=== PATIENT | male | born 1945 | race Caucasian/White ===

== ENCOUNTER 2021-08-16 13:31 | Emergency (ER) | payer OTHER, MEDICARE ==
[2021-08-16 15:02] LABS: BASOPHIL 0.7 % (0-2); EOSINOPHIL 0.9 % (0-7); HCT 46.6 % (42.0-52.0); HGB 15.4 g/dl (13.2-18.0); LYMPHOCYTE 13.4 % (15-48); MCH 29.1 pg (25.0-31.0); MCV 88.1 fL (78.0-100.0); MONOCYTE 7.1 % (0-12); MPV 9.9 fL (6.0-9.5); NEUTROPHIL 77.5 % (41-80); NRBC 0; PLT 213 K/uL (150-400); RBC 5.29 M/uL (4.70-6.00); WBC 6.9 K/uL (4.0-10.5)
[2021-08-16 15:08] LABS: BILIRUBIN NEGATIVE (NEGATIVE); BLOOD 3+ Ery/uL (NEGATIVE); CLARITY CLEAR (CLEAR); COLOR YELLOW (YELLOW); GLUCOSE (U) NORMAL (NORMAL); LEUKOCYTES NEGATIVE Leu/uL (NEGATIVE); NITRITE NEGATIVE (NEGATIVE); PROTEIN 2+ mg/dL (NEGATIVE); SPECIFIC GRAVITY >=1.030 (1.001-1.030); UROBILINOGEN 0.2 mg/dL (0.2-1.0); pH 5.5 (5.0-9.0)
[2021-08-16 15:22] LABS: ALBUMIN 4.1 g/dL (3.4-5.0); BILIRUBIN - TOTAL 0.7 mg/dL (0.2-1.0); BUN/CREAT RATIO (CALC) 15.8 RATIO; CREATININE 1.2 mg/dL (0.67-1.17); GLOBULIN (CALCULATION) 3.8 g/dL; POTASSIUM 3.8 mmol/L (3.5-5.1); TOTAL PROTEIN 7.9 g/dL (6.4-8.2)
[2021-08-16 15:48] LABS: URINARY RBC TNTC
[2021-08-16 15:49] LABS: BACTERIA TRACE
[2021-08-16] MEDS ORDERED: FLOMAX0.4 MG PO (19:44)
[2021-08-16] MEDS ORDERED: NORCO 5-325 TA1 EACH PO (19:44)
[2021-08-16] MEDS ORDERED: ONDANSETRON ODT4 MG PO (19:44)
== END 2021-08-16 20:05 | disposition home or self-care (01) ==
LOC: FER 13:31
PROVIDERS: Physician Assistant
DX: N13.2 Hydronephrosis with renal and ureteral calculous obstruction (principal); I71.4 Abdominal aortic aneurysm, without rupture; I10 Essential (primary) hypertension
CPT/HCPCS: 36415; 80053; 81001; 85025; J1170; J1885; J2405; J7030; J7040